=== PATIENT | female | born 1965 | race African-American/Black ===

== ENCOUNTER 2020-11-11 19:13 | Inpatient (IN) ==
[2020-11-11 22:11] LABS: Basophils % 0.5 % (0.0-0.8); Eosinophils # 0.2 10*3/uL (0.0-0.87); Eosinophils % 2.7 % (0.00-10.9); Hematocrit 38.3 VOL% (35.7-47.0); Hemoglobin 11.7 GM/DL (12.0-16.0); Immature Granulocytes % 0.3 %; Immature Granulocytes Absolute 0.02 #; Lymphocytes # 2.8 10*3/uL (1.4-4.0); Lymphocytes % 38.1 % (21.3-54.2); Mean Corpuscular HGB Conc 30.5 GM/DL (32-36); Mean Corpuscular Volume 102.1 FL (87-102); Mean Platelet Volume 11.5 FL (9.6-12.0); Monocytes % 10.1 % (1.7-12.7); Neutrophils % 48.3 % (38.7-73.9); Platelet Count 201 T/CUMM (130-400); Red Blood Count 3.75 MC/CUMM (3.8-5.5); Red Cell Distribution Width 13.8 % (9.3-17.3); White Blood Count 7.3 T/CUMM (4-12)
[2020-11-11 22:32] LABS: Eosinophils 6 % (0-10); Lymphocytes 35 % (20-55); Segmented Neutrophils 53 % (50-85); Total Cells Counted 100
[2020-11-11 22:33] LABS: Hypochromasia 1+; Macrocytosis 1+; Platelet Estimate Normal
[2020-11-11 22:34] LABS: PT Patient Result 11.2 SECS (10.5-12.0)
[2020-11-11 22:44] LABS: Alanine Aminotransferase 12 U/L (13-56); Albumin 2.7 G/DL (3.4-5.0); Alkaline Phosphatase 149 U/L (45-117); Aspartate Amino Transferase 10 U/L (0-37); Blood Urea Nitrogen 29 MG/DL (7-18); Calcium 7.4 MG/DL (8.5-10.1); Carbon Dioxide 27 MMOL/L (21-32); Estimated Glom Filtration Rate 20 ML/MIN; Glucose 167 MG/DL (74-106); Potassium 4.2 MMOL/L (3.5-5.1); Sodium 143 MMOL/L (136-145); Total Protein 7.7 G/DL (6.4-8.2)
[2020-11-11] MEDS ORDERED: MAGNESIUM SULF RIDER 2 GM/50 ML PREMIX IV STA (23:10)
[2020-11-12 00:14] LABS: Bacteria,Urine Occasional /HPF (Few); Bilirubin,Urine Negative (Negative); Blood, Urine Negative (Negative); Glucose,Urine (UA) 50 mg/dL (Negative); Hyaline Casts,Urine 11 /LPF (0-3); Ketones,Urine Negative (Negative); Mucus,Urine Occasional /LPF (Occasional); Nitrite,Urine Negative (Negative); Protein,Urine 100 MG/DL; RBC,Urine 2 /HPF (0-4); Squamous Epithelial Cell,Urine Occasional /HPF (0-10); Urine Appearance CLEAR (Clear); Urine Color Yellow (Yellow); Urine Specific Gravity 1.014 (1.001-1.035); Urine Urobilinogen < 2.0 EU/DL (0.2-1.0)
[2020-11-12 00:16] LABS: Barbiturates Screen,Urine Negative (Negative); Benzodiazepines Screen,Urine Negative (Negative); Cannabinoid Screen,Urine Negative (Negative); Opiate Screen,Urine Negative (Negative); Phencyclidine Screen,Urine Negative (Negative)
[2020-11-12] MEDS ORDERED: hydrALAZINE 20 MG/1 ML VIAL IV STA ×2 (00:29→04:04)
[2020-11-12] MEDS ORDERED: LORazepam 2 MG/1 ML VIAL IV STA (01:04)
[2020-11-12] MEDS ORDERED: SODIUM CHLORIDE 0.9% 100 ML IV ONE (01:11)
[2020-11-12] MEDS ORDERED: levETIRAcetam 500 MG/5 ML VIAL IV ONE (01:11)
[2020-11-12 02:08] LABS: ABG Base Excess -2.6 MMOL/L (-2.5-2.5); ABG HCO3 22.3 MMOL/L (20-26); ABG Oxygen Saturation 98.8 % (95-100); ABG PH 7.246 (7.35-7.45); ABG TCO2 23.6 MMOL/L (23-27); Allen Test Positive
[2020-11-12] MEDS ORDERED: GLUCAGON 1 MG VIAL IM PRN (03:42)
[2020-11-12] MEDS ORDERED: DEXTROSE 50% 25 GM/50 ML VIAL IV PRN (03:42)
[2020-11-12] MEDS ORDERED: ONDANSETRON 4 MG/2 ML VIAL IV PRN (03:52)
[2020-11-12] MEDS ORDERED: ACETAMINOPHEN 325 MG TABLET PO PRN (03:52)
[2020-11-12 05:26] LABS: ABG Base Excess -2.9 MMOL/L (-2.5-2.5); ABG Oxygen Saturation 98.8 % (95-100); ABG PCO2 55.7 MM HG (35-48); ABG PH 7.263 (7.35-7.45); ABG TCO2 22.5 MMOL/L (23-27); Allen Test Positive; Pt O2 Delivery Device BIPAP
[2020-11-12] MEDS: INSULIN REGULAR 100 UNIT/ML SUBCUT SCH ×4 (08:17→21:24)
[2020-11-12] MEDS: HEPARIN 5,000 UNIT/1 ML VIAL SUBCUT SCH ×3 (08:54→23:43)
[2020-11-12] MEDS: SODIUM CHLORIDE 0.9% 1,000 ML IV SCH (17:37)
[2020-11-12] MEDS: carvediloL 12.5 MG TABLET PO SCH (21:28)
[2020-11-12] MEDS: levETIRAcetam 500 MG TABLET PO SCH (21:28)
[2020-11-13 04:10] LABS: Allen Test Positive; Pt O2 Delivery Device BIPAP
[2020-11-13 04:13] LABS: ABG Base Excess -1.2 MMOL/L (-2.5-2.5); ABG HCO3 23.4 MMOL/L (20-26); ABG Oxygen Saturation 96.3 % (95-100); ABG PCO2 52.5 MM HG (35-48); ABG PH 7.303 (7.35-7.45); ABG TCO2 23.3 MMOL/L (23-27)
[2020-11-13 07:45] LABS: Basophils % 0.2 % (0.0-0.8); Eosinophils # 0.2 10*3/uL (0.0-0.87); Eosinophils % 3.2 % (0.00-10.9); Hematocrit 34.5 VOL% (35.7-47.0); Hemoglobin 11.2 GM/DL (12.0-16.0); Immature Granulocytes % 0.3 %; Immature Granulocytes Absolute 0.02 #; Lymphocytes # 1.9 10*3/uL (1.4-4.0); Lymphocytes % 32.5 % (21.3-54.2); Mean Corpuscular HGB Conc 32.5 GM/DL (32-36); Mean Corpuscular Volume 98.3 FL (87-102); Mean Platelet Volume 12.2 FL (9.6-12.0); Monocytes % 7.8 % (1.7-12.7); Platelet Count 180 T/CUMM (130-400); Red Blood Count 3.51 MC/CUMM (3.8-5.5); Red Cell Distribution Width 13.8 % (9.3-17.3); White Blood Count 5.9 T/CUMM (4-12)
[2020-11-13 08:12] LABS: Calcium 8.1 MG/DL (8.5-10.1); Osmolality,Calculated 293.8 MOS/KG (273-304); Potassium 4.1 MMOL/L (3.5-5.1)
[2020-11-13] MEDS ORDERED: Biktarvy 50-200-25 mg Tablet PO SCH (09:00)
[2020-11-13] MEDS: levETIRAcetam 500 MG TABLET PO SCH ×2 (09:58→20:58)
[2020-11-13] MEDS: INSULIN REGULAR 100 UNIT/ML SUBCUT SCH ×4 (09:58→20:57)
[2020-11-13] MEDS: carvediloL 12.5 MG TABLET PO SCH ×2 (09:59→20:58)
[2020-11-13] MEDS: PREGABALIN 100 MG CAPSULE PO SCH (09:59)
[2020-11-13] MEDS: HEPARIN 5,000 UNIT/1 ML VIAL SUBCUT SCH ×3 (10:00→22:36)
[2020-11-13] MEDS: SODIUM CHLORIDE 0.9% 1,000 ML IV SCH ×3 (14:28→21:46)
[2020-11-13] MEDS: MENTHOL/ZINC OXIDE OINT 71 GM JAR TOP SCH ×2 (15:51→20:56)
[2020-11-13] MEDS: FLUTICASONE 50 MCG NASAL SPRAY 16 GM BOTTLE BOTH NARES SCH (15:51)
[2020-11-13] MEDS: ATORVASTATIN 10 MG TABLET PO SCH (20:58)
[2020-11-13] MEDS: Biktarvy 50-200-25 mg Tablet PO SCH (21:08)
[2020-11-14 05:23] LABS: ABG Base Excess -1.1 MMOL/L (-2.5-2.5); ABG HCO3 23.5 MMOL/L (20-26); ABG Oxygen Saturation 98.7 % (95-100); ABG PCO2 54.5 MM HG (35-48); ABG PH 7.291 (7.35-7.45)
[2020-11-14] MEDS: SODIUM CHLORIDE 0.9% 1,000 ML IV SCH ×2 (05:45→15:56)
[2020-11-14 08:01] LABS: Basophils % 0.4 % (0.0-0.8); Eosinophils # 0.2 10*3/uL (0.0-0.87); Eosinophils % 3.1 % (0.00-10.9); Hematocrit 34.6 VOL% (35.7-47.0); Immature Granulocytes % 0.2 %; Immature Granulocytes Absolute 0.01 #; Lymphocytes # 1.6 10*3/uL (1.4-4.0); Mean Corpuscular HGB Conc 31.8 GM/DL (32-36); Mean Platelet Volume 11.8 FL (9.6-12.0); Monocytes % 9.4 % (1.7-12.7); Neutrophils % 54.9 % (38.7-73.9); Platelet Count 163 T/CUMM (130-400); Red Blood Count 3.46 MC/CUMM (3.8-5.5); Red Cell Distribution Width 13.7 % (9.3-17.3); White Blood Count 4.9 T/CUMM (4-12)
[2020-11-14 08:29] LABS: Calcium 8.1 MG/DL (8.5-10.1); Osmolality,Calculated 300.1 MOS/KG (273-304); Potassium 4.1 MMOL/L (3.5-5.1)
[2020-11-14] MEDS: MENTHOL/ZINC OXIDE OINT 71 GM JAR TOP SCH ×2 (09:29→21:19)
[2020-11-14] MEDS: PREGABALIN 100 MG CAPSULE PO SCH (09:30)
[2020-11-14] MEDS: carvediloL 12.5 MG TABLET PO SCH ×2 (09:30→21:15)
[2020-11-14] MEDS: levETIRAcetam 500 MG TABLET PO SCH ×2 (09:30→21:15)
[2020-11-14] MEDS: FLUTICASONE 50 MCG NASAL SPRAY 16 GM BOTTLE BOTH NARES SCH (09:30)
[2020-11-14] MEDS: HEPARIN 5,000 UNIT/1 ML VIAL SUBCUT SCH ×2 (09:30→17:19)
[2020-11-14] MEDS: INSULIN REGULAR 100 UNIT/ML SUBCUT SCH ×4 (09:31→21:16)
[2020-11-14] MEDS: SODIUM CHLORIDE 0.45% 1,000 ML IV SCH ×2 (13:55→21:25)
[2020-11-14] MEDS: Biktarvy 50-200-25 mg Tablet PO SCH (21:14)
[2020-11-14] MEDS: ATORVASTATIN 10 MG TABLET PO SCH (21:15)
[2020-11-15] MEDS: HEPARIN 5,000 UNIT/1 ML VIAL SUBCUT SCH ×2 (00:05→08:33)
[2020-11-15 04:12] LABS: ABG Base Excess -4.1 MMOL/L (-2.5-2.5); ABG Oxygen Saturation 97.8 % (95-100); ABG PCO2 49.7 MM HG (35-48); ABG PH 7.284 (7.35-7.45); ABG TCO2 24.6 MMOL/L (23-27); Allen Test Positive
[2020-11-15] MEDS: SODIUM CHLORIDE 0.45% 1,000 ML IV SCH (04:54)
[2020-11-15 07:05] LABS: Basophils % 0.4 % (0.0-0.8); Eosinophils # 0.2 10*3/uL (0.0-0.87); Eosinophils % 4.4 % (0.00-10.9); Hematocrit 34.6 VOL% (35.7-47.0); Hemoglobin 10.3 GM/DL (12.0-16.0); Immature Granulocytes % 0.4 %; Immature Granulocytes Absolute 0.02 #; Lymphocytes # 1.9 10*3/uL (1.4-4.0); Lymphocytes % 37.8 % (21.3-54.2); Mean Corpuscular HGB Conc 29.8 GM/DL (32-36); Mean Corpuscular Volume 103.6 FL (87-102); Mean Platelet Volume 11.8 FL (9.6-12.0); Monocytes % 7.4 % (1.7-12.7); Neutrophils % 49.6 % (38.7-73.9); Platelet Count 150 T/CUMM (130-400); Red Blood Count 3.34 MC/CUMM (3.8-5.5); Red Cell Distribution Width 14.2 % (9.3-17.3)
[2020-11-15 07:23] LABS: Eosinophils 5 % (0-10); Hypochromasia 1+; Lymphocytes 39 % (20-55); Microcytosis 1+; Platelet Estimate Adequate; Segmented Neutrophils 53 % (50-85); Total Cells Counted 100
[2020-11-15 07:33] LABS: Calcium 8.2 MG/DL (8.5-10.1); Potassium 4.4 MMOL/L (3.5-5.1)
[2020-11-15] MEDS: INSULIN REGULAR 100 UNIT/ML SUBCUT SCH ×2 (07:38→12:16)
[2020-11-15] MEDS: levETIRAcetam 500 MG TABLET PO SCH (08:32)
[2020-11-15] MEDS: carvediloL 12.5 MG TABLET PO SCH (08:33)
[2020-11-15] MEDS: PREGABALIN 100 MG CAPSULE PO SCH (08:33)
[2020-11-15] MEDS: MENTHOL/ZINC OXIDE OINT 71 GM JAR TOP SCH (08:33)
[2020-11-15] MEDS: FLUTICASONE 50 MCG NASAL SPRAY 16 GM BOTTLE BOTH NARES SCH (08:34)
[2020-11-15 11:53] VITALS: BP 146/68
== END 2020-11-15 15:49 | disposition home or self-care (01) | DRG 189 ==
LOC: EDBD → EDUNIT# → N.ED 19:13 → N.EDINP 11-12 03:42 → N.5E 11-12 06:08
PROVIDERS: ADMIT Emergency Medicine; ATTEND Emergency Medicine

== ENCOUNTER 2020-11-18 15:34 | Inpatient (IN) ==
[2020-11-18] MEDS ORDERED: FAMOTIDINE 20 MG/2 ML VIAL IV STA (16:16)
[2020-11-18] MEDS ORDERED: methylPREDNISolone SOD SUC 125 MG/2 ML VIAL IV STA (16:16)
[2020-11-18 16:41] LABS: ABG Base Excess -1.9 MMOL/L (-2.5-2.5); ABG HCO3 22.6 MMOL/L (20-26); ABG Oxygen Saturation 86.2 % (95-100); ABG PCO2 65.4 MM HG (35-48); ABG PH 7.224 (7.35-7.45); ABG PO2 61.6 MM HG (80-95); ABG TCO2 25.2 MMOL/L (23-27)
[2020-11-18 17:14] LABS: Basophils % 0.5 % (0.0-0.8); Eosinophils # 0.3 10*3/uL (0.0-0.87); Eosinophils % 3.8 % (0.00-10.9); Hematocrit 33.7 VOL% (35.7-47.0); Hemoglobin 10.6 GM/DL (12.0-16.0); Immature Granulocytes % 0.5 %; Immature Granulocytes Absolute 0.03 #; Lymphocytes # 1.6 10*3/uL (1.4-4.0); Lymphocytes % 24.7 % (21.3-54.2); Mean Corpuscular HGB Conc 31.5 GM/DL (32-36); Mean Corpuscular Volume 101.2 FL (87-102); Mean Platelet Volume 11.8 FL (9.6-12.0); Monocytes % 8.4 % (1.7-12.7); Neutrophils % 62.1 % (38.7-73.9); Platelet Count 151 T/CUMM (130-400); Red Blood Count 3.33 MC/CUMM (3.8-5.5); Red Cell Distribution Width 13.9 % (9.3-17.3)
[2020-11-18 17:17] LABS: White Blood Count 6.6 T/CUMM (4-12)
[2020-11-18 17:19] LABS: Bacteria,Urine Occasional /HPF (Few); Bilirubin,Urine Negative (Negative); Blood, Urine Small mg/dL (Negative); Glucose,Urine (UA) 50 mg/dL (Negative); Ketones,Urine Negative (Negative); Mucus,Urine Occasional /LPF (Occasional); Nitrite,Urine Negative (Negative); Protein,Urine 100 MG/DL; RBC,Urine 5 /HPF (0-4); Squamous Epithelial Cell,Urine Occasional /HPF (0-10); Urine Appearance CLOUDY (Clear); Urine Color Yellow (Yellow); Urine Specific Gravity 1.011 (1.001-1.035); Urine Urobilinogen < 2.0 EU/DL (0.2-1.0)
[2020-11-18 17:29] LABS: Albumin 2.5 G/DL (3.4-5.0); Bilirubin,Total 0.4 MG/DL (0.2-1.0); Calcium 8.2 MG/DL (8.5-10.1); Osmolality,Calculated 297.4 MOS/KG (273-304); Potassium 4.2 MMOL/L (3.5-5.1); Total Protein 7.9 G/DL (6.4-8.2)
[2020-11-18 17:32] LABS: Barbiturates Screen,Urine Negative (Negative); Benzodiazepines Screen,Urine Negative (Negative); Cannabinoid Screen,Urine Negative (Negative); Opiate Screen,Urine Negative (Negative); Phencyclidine Screen,Urine Negative (Negative)
[2020-11-18] MEDS ORDERED: LEVOFLOXACIN INJ 750 MG/150 ML PREMIX IV STA (17:49)
[2020-11-18] MEDS ORDERED: GLUCAGON 1 MG VIAL IM PRN (19:28)
[2020-11-18] MEDS ORDERED: ACETAMINOPHEN 325 MG TABLET PO PRN (19:28)
[2020-11-18] MEDS ORDERED: ONDANSETRON 4 MG/2 ML VIAL IV PRN (19:28)
[2020-11-18] MEDS ORDERED: diphenhydrAMINE CAP 25 MG CAPSULE PO PRN (19:28)
[2020-11-18] MEDS ORDERED: guaiFENesin/DM ER 600-30 MG TABLET PO PRN (19:28)
[2020-11-18] MEDS ORDERED: DEXTROSE 50% 25 GM/50 ML VIAL IV PRN (19:28)
[2020-11-18] MEDS ORDERED: SODIUM CHLORIDE 0.45% 1,000 ML IV SCH (19:30)
[2020-11-18] MEDS ORDERED: ALBUTEROL/IPRATROPIUM 3 ML NEB RESP TX PRN (19:33)
[2020-11-18 19:55] LABS: Allen Test Positive; Pt O2 Delivery Device BIPAP
[2020-11-18 19:56] LABS: ABG Base Excess -2.7 MMOL/L (-2.5-2.5); ABG HCO3 22.2 MMOL/L (20-26); ABG Oxygen Saturation 99.3 % (95-100); ABG TCO2 23.4 MMOL/L (23-27)
[2020-11-18] MEDS ORDERED: PIPERACILLIN/TAZOBACTAM 2.25 MG in SODIUM CHLORIDE 0.9% 100 ML IV SCH (20:00)
[2020-11-18 20:18] LABS: % Iron Saturation 18.7 % (18-50)
[2020-11-18 20:47] LABS: Folate 9.4 NG/ML (5.38-24.0)
[2020-11-18] MEDS: hydrALAZINE 20 MG/1 ML VIAL IV PRN (20:54)
[2020-11-18] MEDS: INSULIN LISPRO 100 UNIT/ML SUBCUT SCH (21:29)
[2020-11-18] MEDS: ENOXAPARIN 30 MG/0.3 ML SYRINGE SUBCUT SCH (21:31)
[2020-11-18] MEDS: cefTRIAXone 2,000 MG in SODIUM CHLORIDE 0.9% 100 ML IV SCH (21:32)
[2020-11-19 01:25] LABS: Lactic Acid 0.9 MMOL/L (0.4-2.0)
[2020-11-19] MEDS: hydrALAZINE 20 MG/1 ML VIAL IV PRN (03:45)
[2020-11-19 03:59] LABS: Basophils % 0.1 % (0.0-0.8); Eosinophils % 0.1 % (0.00-10.9); Hematocrit 36.9 VOL% (35.7-47.0); Hemoglobin 11.3 GM/DL (12.0-16.0); Immature Granulocytes % 4.1 %; Lymphocytes # 0.7 10*3/uL (1.4-4.0); Lymphocytes % 9.4 % (21.3-54.2); Mean Corpuscular HGB Conc 30.6 GM/DL (32-36); Mean Corpuscular Volume 101.9 FL (87-102); Mean Platelet Volume 11.8 FL (9.6-12.0); Monocytes % 0.8 % (1.7-12.7); Neutrophils % 85.5 % (38.7-73.9); Platelet Count 144 T/CUMM (130-400); Red Blood Count 3.62 MC/CUMM (3.8-5.5); Red Cell Distribution Width 13.8 % (9.3-17.3); White Blood Count 7.3 T/CUMM (4-12)
[2020-11-19 04:13] LABS: Alanine Aminotransferase 10 U/L (13-56); Albumin 2.5 G/DL (3.4-5.0); Alkaline Phosphatase 126 U/L (45-117); Aspartate Amino Transferase 12 U/L (0-37); Bilirubin,Total < 0.39 MG/DL (0.2-1.0); Blood Urea Nitrogen 22 MG/DL (7-18); Calcium 8.4 MG/DL (8.5-10.1); Carbon Dioxide 25 MMOL/L (21-32); Glucose 200 MG/DL (74-106); HDL Cholesterol 40 MG/DL (40-60); Osmolality,Calculated 296.7 MOS/KG (273-304); Potassium 4.4 MMOL/L (3.5-5.1); Risk Ratio 3.15; Sodium 145 MMOL/L (136-145); Total Protein 8.2 G/DL (6.4-8.2); Triglycerides 77 MG/DL (2-150); VLDL CHOLESTEROL 15.4 MG/DL
[2020-11-19 04:17] LABS: Estimated Glom Filtration Rate 0 ML/MIN; Platelet Estimate Adequate
[2020-11-19 04:33] LABS: Allen Test Positive; Pt O2 Delivery Device BIPAP
[2020-11-19 04:34] LABS: ABG HCO3 21.7 MMOL/L (20-26); ABG Oxygen Saturation 89.5 % (95-100); ABG PCO2 53.1 MM HG (35-48); ABG PH 7.273 (7.35-7.45); ABG PO2 63.5 MM HG (80-95); ABG TCO2 22.3 MMOL/L (23-27)
[2020-11-19] MEDS: INSULIN LISPRO 100 UNIT/ML SUBCUT SCH ×4 (09:04→21:36)
[2020-11-19] MEDS ORDERED: levETIRAcetam 500 MG/5 ML VIAL IV ONE (09:36)
[2020-11-19] MEDS: PANTOPRAZOLE 40 MG VIAL IV SCH (09:43)
[2020-11-19] MEDS: ENOXAPARIN 30 MG/0.3 ML SYRINGE SUBCUT SCH (20:20)
[2020-11-19] MEDS: cefTRIAXone 2,000 MG in SODIUM CHLORIDE 0.9% 100 ML IV SCH (21:37)
[2020-11-20 04:46] LABS: Basophils % 0.1 % (0.0-0.8); Hematocrit 31.3 VOL% (35.7-47.0); Hemoglobin 10.1 GM/DL (12.0-16.0); Immature Granulocytes % 0.5 %; Immature Granulocytes Absolute 0.04 #; Lymphocytes # 0.8 10*3/uL (1.4-4.0); Lymphocytes % 9.4 % (21.3-54.2); Mean Corpuscular HGB Conc 32.3 GM/DL (32-36); Mean Corpuscular Volume 98.7 FL (87-102); Mean Platelet Volume 12.1 FL (9.6-12.0); Monocytes % 5.8 % (1.7-12.7); Neutrophils % 84.2 % (38.7-73.9); Platelet Count 165 T/CUMM (130-400); Red Blood Count 3.17 MC/CUMM (3.8-5.5); Red Cell Distribution Width 13.7 % (9.3-17.3); White Blood Count 8.3 T/CUMM (4-12)
[2020-11-20 05:00] LABS: Calcium 8.2 MG/DL (8.5-10.1); Osmolality,Calculated 300.7 MOS/KG (273-304); Potassium 3.9 MMOL/L (3.5-5.1)
[2020-11-20] MEDS: THEOPHYLLINE ER (24 HR) 400 MG CAPSULE PO SCH (09:16)
[2020-11-20] MEDS: predniSONE 20 MG TABLET PO SCH (09:16)
[2020-11-20] MEDS: PANTOPRAZOLE 40 MG VIAL IV SCH (09:16)
[2020-11-20] MEDS: INSULIN LISPRO 100 UNIT/ML SUBCUT SCH ×4 (09:17→22:28)
[2020-11-20] MEDS ORDERED: traMADol 50 MG TABLET PO PRN (09:46)
[2020-11-20] MEDS ORDERED: tiZANidine 4 MG TABLET PO PRN (09:46)
[2020-11-20] MEDS ORDERED: MAGNESIUM SULF RIDER 4 GM/100 ML PREMIX IV PRN (10:01)
[2020-11-20] MEDS ORDERED: MAGNESIUM SULF RIDER 2 GM/50 ML PREMIX IV PRN (10:01)
[2020-11-20] MEDS: MENTHOL/ZINC OXIDE OINT 71 GM JAR TOP SCH ×2 (15:14→22:28)
[2020-11-20] MEDS ORDERED: LATANOPROST 0.005% OPH SOLN 2.5 ML BOTTLE BOTH EYES SCH (21:00)
[2020-11-20] MEDS: cefTRIAXone 2,000 MG in SODIUM CHLORIDE 0.9% 100 ML IV SCH (22:26)
[2020-11-20] MEDS: carvediloL 12.5 MG TABLET PO SCH (22:27)
[2020-11-20] MEDS: levETIRAcetam 500 MG TABLET PO SCH (22:27)
[2020-11-20] MEDS: PREGABALIN 75 MG CAPSULE PO SCH (22:27)
[2020-11-20] MEDS: ENOXAPARIN 30 MG/0.3 ML SYRINGE SUBCUT SCH (22:27)
[2020-11-21 05:58] LABS: Basophils % 0.2 % (0.0-0.8); Eosinophils % 0.3 % (0.00-10.9); Hematocrit 31.8 VOL% (35.7-47.0); Immature Granulocytes % 0.8 %; Immature Granulocytes Absolute 0.05 #; Lymphocytes # 1.3 10*3/uL (1.4-4.0); Lymphocytes % 20.8 % (21.3-54.2); Mean Corpuscular HGB Conc 31.4 GM/DL (32-36); Mean Corpuscular Volume 99.1 FL (87-102); Mean Platelet Volume 11.3 FL (9.6-12.0); Monocytes % 7.6 % (1.7-12.7); Neutrophils % 70.3 % (38.7-73.9); Platelet Count 164 T/CUMM (130-400); Red Blood Count 3.21 MC/CUMM (3.8-5.5); Red Cell Distribution Width 13.7 % (9.3-17.3); White Blood Count 6.2 T/CUMM (4-12)
[2020-11-21 06:21] LABS: Calcium 8.6 MG/DL (8.5-10.1); Osmolality,Calculated 297.7 MOS/KG (273-304); Potassium 3.7 MMOL/L (3.5-5.1)
[2020-11-21] MEDS ORDERED: MAGNESIUM SULF RIDER 4 GM/100 ML PREMIX IV ONE (08:00)
[2020-11-21] MEDS: levETIRAcetam 500 MG TABLET PO SCH (08:22)
[2020-11-21] MEDS: THEOPHYLLINE ER (24 HR) 400 MG CAPSULE PO SCH (08:22)
[2020-11-21] MEDS: PREGABALIN 75 MG CAPSULE PO SCH (08:23)
[2020-11-21] MEDS: predniSONE 20 MG TABLET PO SCH (08:23)
[2020-11-21] MEDS: PANTOPRAZOLE 40 MG VIAL IV SCH (08:24)
[2020-11-21] MEDS: MENTHOL/ZINC OXIDE OINT 71 GM JAR TOP SCH (08:38)
[2020-11-21] MEDS ORDERED: CITALOPRAM 20 MG TABLET PO SCH (09:00)
[2020-11-21] MEDS ORDERED: ATORVASTATIN 10 MG TABLET PO SCH (09:00)
[2020-11-21] MEDS ORDERED: LOSARTAN 50 MG TABLET PO SCH (09:00)
[2020-11-21] MEDS ORDERED: BICTEGRAV EMTRICIT TENOFOV ALA PO SCH (09:00)
[2020-11-21] MEDS ORDERED: PANTOPRAZOLE 40 MG TABLET PO SCH (09:00)
[2020-11-21] MEDS: INSULIN LISPRO 100 UNIT/ML SUBCUT SCH ×2 (09:01→13:21)
[2020-11-21] MEDS: carvediloL 12.5 MG TABLET PO SCH (09:37)
[2020-11-21 11:15] VITALS: BP 153/85
[2020-11-21 12:34] LABS: % CD4 (T Cells) 16 % (32-64); % CD8 (T Cells) 48 % (11-40); 4/8 Ratio 0.3 (>=0.9)
== END 2020-11-21 14:27 | disposition home health service (06) | DRG 205 ==
LOC: EDUNIT# → EDBD → N.ED 15:34 → N.EDINP 19:27 → SUATTDRO 19:27 → N.2E 11-19 10:08 → N.4E 11-19 15:21
PROVIDERS: ADMIT Internal Medicine; ATTEND Internal Medicine